=== PATIENT | female | born 1940 | race Caucasian/White ===

== ENCOUNTER 2018-12-29 08:06 | Day surgery (SDC) | payer MEDICARE, OTHER ==
[~2018-12-29 08:06] MED LIST: ASPI325 PO; CLON.1 PO; CYCL10 PO; HYDACE5 PO; METO50ER PO; PROLENSA1.6 ML OP; TELM40/12. PO; TIMO.5OPSO BOTHEYES; ZESTRIL40 MG PO
== END 2018-12-29 23:01 | disposition home or self-care (01) ==
LOC: MOI MAM 08:06 → MOI US 08:30 → MOI MAM 09:00
DX: C50.812 Malignant neoplasm of overlapping sites of left female breast (principal); Z17.0 Estrogen receptor positive status [ER+]
CPT/HCPCS: 19083; 77065; 88305; 88360; A4648; G0279

== ENCOUNTER 2019-02-23 08:24 | Day surgery (SDC) | payer MEDICARE, OTHER ==
[2019-03-15] MEDS ORDERED: ALLEGRA ALLERG180 MG PO (13:45)
== END 2019-02-23 22:51 | disposition home or self-care (01) ==
LOC: MOI US 08:24
DX: C50.912 Malignant neoplasm of unspecified site of left female breast (principal)
CPT/HCPCS: 19285; 77065

== ENCOUNTER 2019-03-21 09:13 | Day surgery (SDC) | payer MEDICARE, OTHER ==
[~2019-03-21] VITALS: Ht 152.4 cm; Wt 82.9 kg
[~2019-03-21 09:13] MED LIST changes: +ALLEGRA ALLERG180 MG PO
--- NOTE | 2019-03-21 10:49 | NUR ---
PT ADMITTED TO [facility]. AGREES WITH PLANNED SURGERY. LUNG SOUNDS CLEAR.
--- NOTE | 2019-03-21 14:05 | NUR ---
Discharge instructions reviewed with patient. Patient verbalizes understanding. Copy given to patient to take home. Dressing to procedure site clean, dry, intact with no visible drainage, swelling, erythema or bruising noted. Patient States Post-Procedure ride home has been arranged FRIEND STACY.
--- NOTE | 2019-03-21 14:43 | NUR ---
Discharged via wheelchair to private car for ride home. PAIN MANAGED WITH PRN MEDICATION. GAIT IS STAEDY WITH AMBULATION.
== END 2019-03-21 14:49 | disposition home or self-care (01) ==
LOC: ORSCMMR 09:13 → NM 09:13 → ORSCMMR 09:14 → NM 10:30
PROVIDERS: Surgery
PROC: 07B60ZX Excision of Left Axillary Lymphatic, Open Approach, Diagnostic (ICD-10-PCS; principal; 2019-03-21 11:30)
PROC: 0HBU0ZZ Excision of Left Breast, Open Approach (ICD-10-PCS; principal; 2019-03-21 11:30)
DX: C50.912 Malignant neoplasm of unspecified site of left female breast (principal); D36.0 Benign neoplasm of lymph nodes; I10 Essential (primary) hypertension; E66.9 Obesity, unspecified; Z68.35 Body mass index [BMI] 35.0-35.9, adult; Z79.899 Other long term (current) drug therapy
CPT/HCPCS: 38792; 76098; 88307; 88342; A9270-GY; A9520; J0690; J2250; J2704; J3010; J7120; Q9968